=== PATIENT | female | born 1940 | race Caucasian/White ===

== ENCOUNTER → 2016-08-08 | Outpatient (REF) | payer MEDICARE | LOC: M LAB REF 16:40 | PROVIDERS: ATTEND Nurse Practitioner Adult Health | DX: Z01.89 Encounter for other specified special examinations (principal) ==

== ENCOUNTER → 2016-11-07 | Outpatient (CLI) | payer MEDICARE ==
[~2016-11-07] VITALS: Ht 160 cm; Wt 80.7 kg
[~2016-11-07] MED LIST: ATEN25TA PO; BENA40TA2 PO; CARD120T4 PO; CO Q10CA PO; COUM1TAB17 PO; COUM2.5T11 PO; HYDR12.55 PO; LEVO75TA4 PO; LIDOCAINE 2% INJ 100 MG/5 ML SDV (FOR ANES.) As Ordered ONE; NS 1,000 ML IV SCH; OMEP10CASR PO; PRAV40TA2 PO; PROPOFOL 200 MG/20 ML VIAL As Ordered ONE; VITAPOW41 XX
--- NOTE | 2016-11-07 13:21 | ROOR ---
Patient Name: Bonnie Lovelace Procedure Date: 11/07/2016 1:04 PM Date of : 1940 Age: 75 Room: [facility] Gender: Female Note Status: Finalized Procedure: Upper GI endoscopy + Biopsies Indications: Heartburn Providers: Triston Boogie MD Referring MD: GIUSEPPE PEREZ JR, MD Requesting Provider: Medicines: Monitored Anesthesia Care Complications: No immediate complications. Procedure: Pre-Anesthesia Assessment: - The heart rate, respiratory rate, oxygen saturations, blood pressure, adequacy of pulmonary ventilation, and response to care were monitored throughout the procedure. The Endoscope was introduced through the mouth, and advanced to the second part of duodenum. The upper GI endoscopy was accomplished without difficulty. The patient tolerated the procedure well. Findings: The Z-line was irregular and was found 30 cm from the incisors. Multiple biopsies were obtained with cold forceps for evaluation to rule out Larson's Esophagus randomly at the gastroesophageal junction. A large hiatal hernia was present. No other significant abnormalities were identified in a careful examination of the stomach. The exam of the duodenum was otherwise normal. Impression: - Z-line irregular, 30 cm from the incisors. - Large hiatal hernia. - Multiple biopsies were obtained at the gastroesophageal junction. - The examination was otherwise normal. Recommendation: - Patient has a contact number available for emergencies. The signs and symptoms of potential delayed complications were discussed with the patient. Return to normal activities tomorrow. Written discharge instructions were provided to the patient. - Discharge patient to home. - Follow an antireflux regimen. - Continue present medications. - Check Portal Online for Path Results.([email or web address]) - Telephone GI clinic for pathology results in 1 week. - The findings and recommendations were discussed with the patient's family. Triston Boogie MD Triston Boogie MD 11/07/2016 1:21:35 PM This report has been signed electronically. Number of Addenda: 0 Note Initiated On: 11/07/2016 1:04 PM Estimated Blood Loss: Estimated blood loss: none.
--- NOTE | 2016-11-07 13:39 | ROOR ---
Patient Name: Bonnie Lovelace Procedure Date: 11/07/2016 1:04 PM Date of : 1940 Age: 75 Room: [facility] Gender: Female Note Status: Finalized Procedure: Colonoscopy to Cecum + Biopsy Polypectomy Indications: High risk colon cancer surveillance: Personal history of colonic polyps, Last colonoscopy: 2013 Providers: Triston Boogie MD Referring MD: GIUSEPPE PEREZ JR, MD Requesting Provider: Medicines: Monitored Anesthesia Care Complications: No immediate complications. Procedure: Pre-Anesthesia Assessment: - The heart rate, respiratory rate, oxygen saturations, blood pressure, adequacy of pulmonary ventilation, and response to care were monitored throughout the procedure. The Colonoscope was introduced through the anus and advanced to the cecum, identified by appendiceal orifice and ileocecal valve. The colonoscopy was performed without difficulty. The patient tolerated the procedure well. The quality of the bowel preparation was excellent. Findings: The perianal and digital rectal examinations were normal. Non-bleeding internal hemorrhoids were found during retroflexion. The hemorrhoids were small and Grade I (internal hemorrhoids that do not prolapse). Scattered small-mouthed diverticula were found in the recto-sigmoid colon, sigmoid colon and descending colon. A small polyp was found in the hepatic flexure. The polyp was sessile. The polyp was removed with a jumbo cold forceps. Resection and retrieval were complete. The exam was otherwise without abnormality on direct and retroflexion views. Impression: - Non-bleeding internal hemorrhoids. - Diverticulosis in the recto-sigmoid colon, in the sigmoid colon and in the descending colon. - One small polyp at the hepatic flexure, removed with a jumbo cold forceps. Resected and retrieved. - The examination was otherwise normal on direct and retroflexion views. - The exam was otherwise normal to the cecum. Recommendation: - Patient has a contact number available for emergencies. The signs and symptoms of potential delayed complications were discussed with the patient. Return to normal activities tomorrow. Written discharge instructions were provided to the patient. - High fiber diet. - Discharge patient to home. - Continue present medications. - Await pathology results. - Telephone GI clinic for pathology results in 1 week. - Check Portal Online for Path Results.([email or web address]) - Repeat colonoscopy for symptoms only. - The findings and recommendations were discussed with the patient's family. Triston Boogie MD Triston Boogie MD 11/07/2016 1:39:00 PM This report has been signed electronically. Number of Addenda: 0 Note Initiated On: 11/07/2016 1:04 PM Estimated Blood Loss: Estimated blood loss: none.
[2016-11-07 14:00] VITALS: BP 131/65
== END | disposition home or self-care (01) ==
LOC: M OPP 11:27
PROVIDERS: ATTEND Internal Medicine Gastroenterology
DX: Z12.11 Encounter for screening for malignant neoplasm of colon (principal); D12.3 Benign neoplasm of transverse colon; K64.0 First degree hemorrhoids; K57.30 Diverticulosis of large intestine without perforation or abscess without bleeding; Z86.010 Personal history of colon polyps; R12 Heartburn; K22.8 Other specified diseases of esophagus; K44.9 Diaphragmatic hernia without obstruction or gangrene; I48.91 Unspecified atrial fibrillation; I10 Essential (primary) hypertension; E78.5 Hyperlipidemia, unspecified; E03.9 Hypothyroidism, unspecified; R23.3 Spontaneous ecchymoses; F32.9 Major depressive disorder, single episode, unspecified; J45.909 Unspecified asthma, uncomplicated; R06.83 Snoring; G47.30 Sleep apnea, unspecified; N63 Unspecified lump in breast; M19.90 Unspecified osteoarthritis, unspecified site; Z79.01 Long term (current) use of anticoagulants; Z79.899 Other long term (current) drug therapy; Z91.040 Latex allergy status; Z80.0 Family history of malignant neoplasm of digestive organs; Z80.3 Family history of malignant neoplasm of breast; Z87.891 Personal history of nicotine dependence

== ENCOUNTER 2017-05-15 06:25 | Day surgery (SDC) | payer MEDICARE ==
[~2017-05-15] VITALS: Ht 160 cm; Wt 80.3 kg
[~2017-05-15 06:25] MED LIST changes: +ACETAMINOPHEN 325 MG TAB PO PRN; -BENA40TA2 PO; +BENA40TA7 PO; -COUM2.5T11 PO; +COUM2.5T17 PO; -LIDOCAINE 2% INJ 100 MG/5 ML SDV (FOR ANES.) As Ordered ONE; +METO1TAB32 PO; -NS 1,000 ML IV SCH; -PROPOFOL 200 MG/20 ML VIAL As Ordered ONE; +QVAR1AER2 IN; +VENTAER IN
[2017-05-15] MEDS ORDERED: LIDOCAINE 3.5 % 1ML OPHTH TOPICAL GEL OU ONE (07:00)
[2017-05-15] MEDS ORDERED: PHENYLEPHRINE 2.5% OPHTH SOL 2ML OS ONE (07:00)
[2017-05-15] MEDS ORDERED: TROPICAMIDE 1% OPHTH SOLN 2ML OS ONE (07:00)
[2017-05-15] MEDS ORDERED: BALANCED SALT IRRIGATION SOLUTION 500ML BAG (FOR OR EYE MACHINE) XX ONE (07:00)
[2017-05-15] MEDS ORDERED: CYCLOPENTOLATE 2% OPHTH SOLN 2ML BTL OS ONE (07:00)
[2017-05-15] MEDS ORDERED: OFLOXACIN 0.3 % (OCUFLOX) OPTH SOL 5ML OS ONE (07:00)
[2017-05-15] MEDS ORDERED: PROPARACAINE 0.5% OPHTH SOL 15ML OS PRN (07:01)
[2017-05-15] MEDS ORDERED: MIDAZOLAM INJ 2 MG/2 ML VIAL (J2250) As Ordered ONE (07:04)
[2017-05-15] MEDS ORDERED: fentaNYL 100 MCG/2 ML INJECTION (J3010) As Ordered ONE (07:04)
[2017-05-15] MEDS ORDERED: ACETYLCHOLINE OPHTH SOLN 1% 2ML (MIOCHOL-E) As Ordered ONE (07:43)
[2017-05-15] MEDS ORDERED: POVIDONE-IODINE 5% OPHTH PREP SOL 30ML As Ordered ONE (07:43)
[2017-05-15] MEDS ORDERED: LIDOCAINE 1% SDV 5 ML VIAL As Ordered ONE (07:43)
[2017-05-15] MEDS ORDERED: CEFUROXIME 1MG/0.1ML INTRACAMERAL INJ As Ordered ONE (07:43)
[2017-05-15] MEDS ORDERED: HEALON DUET (HEALON 10MG/ML 0.55ML & HEALON ENDOCOAT 30MG/ML 0.85ML) As Ordered ONE (07:44)
[2017-05-15] MEDS ORDERED: BALANCED SALT IRRIGATION SOLUTION 500ML BAG (FOR OR EYE MACHINE) As Ordered ONE (07:55)
[2017-05-15] MEDS ORDERED: KETOROLAC 0.5% OPHTH SOLN OS ONE (08:45)
[2017-05-15] MEDS ORDERED: TRIMETHOBENZAMIDE 300 MG CAP PO PRN (08:45)
[2017-05-15] MEDS ORDERED: AcetaZOLAMIDE 500 MG ER CAP PO ONE (08:45)
[2017-05-15 09:47] VITALS: BP 122/62
--- NOTE | 2017-05-16 08:13 | RO ---
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 POSTPROCEDURE DIAGNOSIS: Age related nuclear cataract left eye. PROCEDURE: Phacoemulsification and posterior chamber intraocular lens implantation. The lens used was PCB00, 27.5 diopter. SURGEON: Elizabeth Fierro MD BALE COVERER: ANESTHESIA: Topical with sedation. DESCRIPTION OF PROCEDURE: The patient was prepped and draped in the usual fashion. A lid speculum was placed between the lids. The eye was fixated. A stab incision was made to the anterior chamber, and 1% non-preserved lidocaine was instilled. Then, viscoelastic was instilled. The eye was re-fixated. A 2.75 mm sapphire keratome was used to make a clear corneal temporal limbal incision. Capsulorrhexis was begun with a 30-gauge bent needle and then carried out in a circular fashion with capsulorrhexis forceps. The lens was hydrodissected, and then the phacoemulsification unit was used to make a groove in the nucleus in two meridians. The nucleus was then cracked into four quadrants. Each quadrant was removed with the phacoemulsification unit. Any remaining cortex was removed with the irrigation and aspiration (I and A) unit. Capsular bag was refilled with viscoelastic. A posterior chamber intraocular lens was placed in the capsular bag without difficulty. Any remaining viscoelastic was removed with the I and A unit. The wound was hydrated, and Miochol and cefuroxime were instilled into the anterior chamber. The patient tolerated the procedure well and went to the recovery room in stable condition.
== END 2017-05-15 09:50 | disposition home or self-care (01) ==
LOC: M SDC 06:25
PROVIDERS: ATTEND Ophthalmology
DX: H25.12 Age-related nuclear cataract, left eye (principal); I11.9 Hypertensive heart disease without heart failure; I48.0 Paroxysmal atrial fibrillation; E78.00 Pure hypercholesterolemia, unspecified; E03.9 Hypothyroidism, unspecified; K44.9 Diaphragmatic hernia without obstruction or gangrene; K21.9 Gastro-esophageal reflux disease without esophagitis; J45.40 Moderate persistent asthma, uncomplicated; R06.83 Snoring; G47.33 Obstructive sleep apnea (adult) (pediatric); J30.1 Allergic rhinitis due to pollen; E66.9 Obesity, unspecified; Z68.32 Body mass index [BMI] 32.0-32.9, adult; Z79.899 Other long term (current) drug therapy; Z79.01 Long term (current) use of anticoagulants; Z87.891 Personal history of nicotine dependence; Z96.642 Presence of left artificial hip joint
CPT/HCPCS: 66984; J2250; J3010; V2632

== ENCOUNTER → 2019-07-28 | Outpatient (REF) | payer MEDICARE ==
[~2019-07-28] MED LIST changes: -ACETAMINOPHEN 325 MG TAB PO PRN; +BENA40TA5 PO; -BENA40TA7 PO; -QVAR1AER2 IN; +QVAR80AE10 IN
[2019-07-28 19:16] LABS: CA19-9 TUMOR MARKER,CARBOHYDRA 21.1 U/ML (<35.0)
== END ==
LOC: M LAB REF 16:40
PROVIDERS: ATTEND Nurse Practitioner Adult Health
DX: D48.7 Neoplasm of uncertain behavior of other specified sites (principal)

== ENCOUNTER → 2020-03-02 | Outpatient (REF) | payer MEDICARE ==
[2020-03-02 16:58] LABS: PERCENT SATURATION 3.4 % (13.2-45.0)
== END ==
LOC: M LAB REF 11:51
PROVIDERS: ATTEND Nurse Practitioner Adult Health
DX: D64.9 Anemia, unspecified (principal); R35.0 Frequency of micturition

== ENCOUNTER 2020-05-06 09:12 | Outpatient (CLI) | payer MEDICARE ==
[~2020-05-06] VITALS: Ht 157.5 cm; Wt 82.1 kg
[2020-05-06] MEDS ORDERED: IRON SUCROSE 475 MG in NS 250 ML IV ONE (09:30)
[2020-05-06] MEDS ORDERED: IRON SUCROSE 25 MG in NS 25 ML IV ONE (09:30)
[2020-05-06 10:50] VITALS: BP 129/60
[2020-05-06 12:05] VITALS: BP 122/66
[2020-05-06 13:00] VITALS: BP 119/51
[2020-05-06 13:55] VITALS: BP 112/66
[2020-05-06 14:23] VITALS: BP 106/53
== END 2020-05-06 14:35 | disposition home or self-care (01) ==
LOC: M INFU 09:12
PROVIDERS: ATTEND Nurse Practitioner Adult Health
DX: D50.9 Iron deficiency anemia, unspecified (principal); Z79.899 Other long term (current) drug therapy
CPT/HCPCS: 96365; 96366; J1756

== ENCOUNTER 2023-01-25 13:27 | Observation (INO) | payer MEDICARE ==
[~2023-01-25] VITALS: Ht 160 cm; Wt 63.6 kg
[~2023-01-25 13:27] MED LIST changes: -BENA40TA5 PO; +BENA40TA84 PO
[2023-01-25 14:41] LABS: BASO # 0.1 10^3/uL (0.0-0.2); BASO % 0.8 % (0.0-1.0); EOS # 0.1 10^3/uL (0.0-0.5); EOS % 1.4 % (0.0-3.0); HEMATOCRIT 49.1 % (36.0-47.0); HEMOGLOBIN 16.1 g/dl (12.0-15.5); LYMPH # 1.2 10^3/uL (1.5-5.0); LYMPH % 16.4 % (24.0-44.0); MEAN CORPUSCULAR HEMOGLOBIN 29.7 pg (27.0-33.0); MEAN CORPUSCULAR HGB CONC 32.8 g/dl (32.0-36.5); MEAN CORPUSCULAR VOLUME 90.6 fl (80.0-96.0); MONO # 0.5 10^3/uL (0.0-0.8); NEUTROPHILS # 5.5 10^3/uL (1.5-8.5); NEUTROPHILS % 74.3 % (36.0-66.0); RED BLOOD COUNT 5.42 10^6/uL (4.00-5.40); WHITE BLOOD COUNT 7.4 10^3/uL (4.0-10.0)
[2023-01-25 15:16] LABS: CK-MB VALUE MASS 1.3 NG/ML (<3.6)
[2023-01-25 15:17] LABS: BLOOD UREA NITROGEN 18 MG/DL (9-23); CALCIUM LEVEL 9.3 MG/DL (8.3-10.6); CARBON DIOXIDE LEVEL 21 MMOL/L (20-31); CHLORIDE LEVEL 109 MMOL/L (98-107); CREATININE FOR GFR 0.69 MG/DL (0.55-1.30); GLOMERULAR FILTRATION RATE > 60.0 (>32); GLUCOSE, FASTING 198 MG/DL (74-106); PLATELET COUNT, AUTOMATED 151 10^3/uL (150-450); POTASSIUM SERUM 4.8 MMOL/L (3.5-5.1); SODIUM LEVEL 140 MMOL/L (136-145)
[2023-01-25 15:19] LABS: INR 1.03; PROTHROMBIN TIME 13.7 SECONDS (12.5-14.5); THYROID STIMULATING HORMONE 3.393 uIU/ML (0.55-4.78)
[2023-01-25 15:20] LABS: PARTIAL THROMBOPLASTIN TIME 27.8 SECONDS (24.8-34.2)
[2023-01-25 15:23] LABS: CPK CREATINE PHOSPHOKINASE 54 U/L (34-145)
[2023-01-25] MEDS ORDERED: BENAZEPRIL 20 MG TAB PO SCH (21:00)
[2023-01-25 22:04] LABS: RSV AMPLIFICATION NEGATIVE (NEGATIVE)
[2023-01-25 22:08] VITALS: O2SAT 98
[2023-01-25] MEDS ORDERED: ATEN25TA PO (22:40)
[2023-01-25] MEDS ORDERED: APIXABAN 5 MG TAB (ELIQUIS) PO ONE (22:40)
[2023-01-25] MEDS ORDERED: ELIQ5TAB PO ×2 (22:40→23:53)
[2023-01-25] MEDS ORDERED: atenoloL 25 MG TAB PO ONE (22:40)
[2023-01-25] MEDS ORDERED: ACETAMINOPHEN 500 MG TAB PO ONE (23:50)
[2023-01-25] MEDS ORDERED: HYDR-3490 PO (23:53)
[2023-01-25] MEDS ORDERED: BENA40TA84 PO (23:53)
[2023-01-25] MEDS ORDERED: ALBU8.5H INH (23:53)
[2023-01-25] MEDS ORDERED: BUSP15TA47 PO (23:53)
[2023-01-25] MEDS ORDERED: DILT120C31 PO (23:53)
[2023-01-25] MEDS ORDERED: PRAV40TA2 PO (23:53)
[2023-01-25] MEDS ORDERED: CITA20TA7 PO (23:53)
[2023-01-25] MEDS ORDERED: LEVO88TA3 PO (23:53)
[2023-01-25] MEDS ORDERED: OMEP-173 PO (23:53)
[2023-01-25] MEDS ORDERED: HOME MED LIST COMPLETE! XX SCH (23:55)
[2023-01-26 02:26] LABS: HEMOGLOBIN A1c 5.3 % (4.0-6.0)
[2023-01-26] MEDS ORDERED: amLODIPine 5 MG TAB PO ONE (03:00)
[2023-01-26] MEDS ORDERED: ACETAMINOPHEN TAB 650MG DOSE (2X325MG) PO PRN (04:00)
[2023-01-26] MEDS: LEVOTHYROXINE 88MCG TABLET (0.088 MG) PO SCH (05:55)
[2023-01-26] MEDS ORDERED: ALBUTEROL 90 MCG/ACT 8GM HFA INHALER INH PRN (06:20)
[2023-01-26 06:46] LABS: ALBUMIN 3.3 G/DL (3.2-5.2); ALKALINE PHOSPHATASE 80 U/L (46-116); ALT/SGPT 14 U/L (7.0-40); AST/SGOT 14 U/L (<34); BILIRUBIN,TOTAL 0.8 MG/DL (0.3-1.2); BLOOD UREA NITROGEN 14 MG/DL (9-23); CALCIUM LEVEL 9.2 MG/DL (8.3-10.6); CARBON DIOXIDE LEVEL 24 MMOL/L (20-31); CHLORIDE LEVEL 108 MMOL/L (98-107); CREATININE FOR GFR 0.72 MG/DL (0.55-1.30); GLOMERULAR FILTRATION RATE > 60.0 (>32); GLUCOSE, FASTING 85 MG/DL (74-106); MAGNESIUM LEVEL 2.2 MG/DL (1.8-2.4); POTASSIUM SERUM 4.6 MMOL/L (3.5-5.1); SODIUM LEVEL 140 MMOL/L (136-145); TOTAL PROTEIN 5.4 G/DL (5.7-8.2)
[2023-01-26] MEDS: busPIRone 5 MG TAB PO SCH ×2 (08:40→21:17)
[2023-01-26] MEDS: OMEPRAZOLE 20MG CAP PO SCH (08:40)
[2023-01-26] MEDS: APIXABAN 5 MG TAB (ELIQUIS) PO SCH ×2 (08:41→21:16)
[2023-01-26] MEDS: PRAVASTATIN 20 MG TAB PO SCH (08:41)
[2023-01-26] MEDS: CitaloPRAM (CeleXA) 20 MG TAB PO SCH (08:41)
[2023-01-26] MEDS: dilTIAZem 120MG **CD** CAPSULE PO SCH (08:42)
[2023-01-26] MEDS: BENAZEPRIL 20 MG TAB PO SCH (11:12)
[2023-01-26 17:45] VITALS: BP 105/54; TEMP 97.5; O2SAT 98
[2023-01-26] MEDS ORDERED: CALCIUM CARBONATE 500 MG CHEW U/D PO PRN (20:05)
[2023-01-26 21:59] VITALS: BP 97/55; TEMP 97.7; O2SAT 97
[2023-01-26 22:59] VITALS: BP 136/76
[2023-01-27] MEDS: LEVOTHYROXINE 88MCG TABLET (0.088 MG) PO SCH (05:57)
[2023-01-27 06:00] VITALS: BP 131/75; TEMP 97.7; O2SAT 95
[2023-01-27 07:10] LABS: HEMATOCRIT 44.4 % (36.0-47.0); HEMOGLOBIN 14.7 g/dl (12.0-15.5); MEAN CORPUSCULAR HEMOGLOBIN 29.9 pg (27.0-33.0); MEAN CORPUSCULAR HGB CONC 33.1 g/dl (32.0-36.5); MEAN CORPUSCULAR VOLUME 90.2 fl (80.0-96.0); PLATELET COUNT, AUTOMATED 280 10^3/uL (150-450); RED BLOOD COUNT 4.92 10^6/uL (4.00-5.40); WHITE BLOOD COUNT 7.4 10^3/uL (4.0-10.0)
[2023-01-27 07:26] LABS: BLOOD UREA NITROGEN 18 MG/DL (9-23); CALCIUM LEVEL 10.2 MG/DL (8.3-10.6); CARBON DIOXIDE LEVEL 22 MMOL/L (20-31); CHLORIDE LEVEL 105 MMOL/L (98-107); CREATININE FOR GFR 0.91 MG/DL (0.55-1.30); GLOMERULAR FILTRATION RATE > 60.0 (>32); GLUCOSE, FASTING 123 MG/DL (74-106); MAGNESIUM LEVEL 2.1 MG/DL (1.8-2.4); SODIUM LEVEL 139 MMOL/L (136-145)
[2023-01-27] MEDS: APIXABAN 5 MG TAB (ELIQUIS) PO SCH (10:03)
[2023-01-27] MEDS: CitaloPRAM (CeleXA) 20 MG TAB PO SCH (10:03)
[2023-01-27] MEDS: PRAVASTATIN 20 MG TAB PO SCH (10:03)
[2023-01-27] MEDS: OMEPRAZOLE 20MG CAP PO SCH (10:03)
[2023-01-27] MEDS: busPIRone 5 MG TAB PO SCH (10:03)
[2023-01-27 10:04] VITALS: BP 128/62
[2023-01-27] MEDS: dilTIAZem 120MG **CD** CAPSULE PO SCH (10:04)
[2023-01-27] MEDS: BENAZEPRIL 20 MG TAB PO SCH (10:04)
[2023-01-27] MEDS ORDERED: BUSP15TA47 PO (10:24)
[2023-01-27] MEDS ORDERED: DILT120C31 PO (10:24)
[2023-01-27] MEDS ORDERED: OMEP-173 PO (10:24)
[2023-01-27] MEDS ORDERED: HYDR-3490 PO (10:24)
[2023-01-27] MEDS ORDERED: LEVO88TA3 PO (10:24)
[2023-01-27] MEDS ORDERED: ALBU8.5H INH (10:24)
[2023-01-27] MEDS ORDERED: ELIQ5TAB PO (10:24)
[2023-01-27] MEDS ORDERED: PRAV40TA2 PO (10:24)
[2023-01-27] MEDS ORDERED: BENA40TA84 PO (10:24)
[2023-01-27] MEDS ORDERED: CITA20TA7 PO (10:24)
== END 2023-01-27 14:07 | disposition home or self-care (01) ==
LOC: M ED 13:27 → EDBD 13:27 → M ED INP 13:28 → M MSPAV 01-26 17:42
PROVIDERS: ADMIT Internal Medicine; ATTEND Family Medicine
DX: I16.0 Hypertensive urgency (principal); R00.2 Palpitations; I48.91 Unspecified atrial fibrillation; I67.82 Cerebral ischemia; E03.9 Hypothyroidism, unspecified; I10 Essential (primary) hypertension; J45.909 Unspecified asthma, uncomplicated; F41.9 Anxiety disorder, unspecified; E78.00 Pure hypercholesterolemia, unspecified; R73.9 Hyperglycemia, unspecified; K21.9 Gastro-esophageal reflux disease without esophagitis; Z76.0 Encounter for issue of repeat prescription; Z91.148 Patient's other noncompliance with medication regimen for other reason; Z79.899 Other long term (current) drug therapy; Z79.01 Long term (current) use of anticoagulants; Z79.890 Hormone replacement therapy; R42 Dizziness and giddiness
CPT/HCPCS: 36415; 70450; 70544; 70551; 71045; 80048; 80053; 82550; 82553; 83036; 83735; 84443; 84484; 85025; 85027; 85610; 85730; 87631; 93005; 93041; 97161; 97530; 99285; G0378

== ENCOUNTER 2024-01-02 02:04 | Observation (INO) | payer MEDICARE ==
[~2024-01-02] VITALS: Ht 157.5 cm; Wt 68.4 kg
[~2024-01-02 02:04] MED LIST changes: +ALBU8.5H INH; +BUSP15TA47 PO; +CITA20TA7 PO; +DILT120C31 PO; +ELIQ5TAB PO; +HYDR-3490 PO; +LEVO88TA3 PO; +OMEP-173 PO
[2024-01-02] MEDS: ONDANSETRON 4MG ORAL DISINTEGRATING TAB PO ONE (03:48)
[2024-01-02 04:03] LABS: BASO % 0.5 % (0.0-1.0); HEMATOCRIT 47.1 % (36.0-47.0); HEMOGLOBIN 15.9 g/dl (12.0-15.5); LYMPH # 0.5 10^3/uL (1.5-5.0); LYMPH % 6.9 % (24.0-44.0); MEAN CORPUSCULAR HEMOGLOBIN 30.7 pg (27.0-33.0); MEAN CORPUSCULAR HGB CONC 33.8 g/dl (32.0-36.5); MEAN CORPUSCULAR VOLUME 90.9 fl (80.0-96.0); MONO # 0.6 10^3/uL (0.0-0.8); MONO % 8.5 % (2.0-8.0); NEUTROPHILS # 5.5 10^3/uL (1.5-8.5); NEUTROPHILS % 83.9 % (36.0-66.0); PLATELET COUNT, AUTOMATED 190 10^3/uL (150-450); RED BLOOD COUNT 5.18 10^6/uL (4.00-5.40); WHITE BLOOD COUNT 6.5 10^3/uL (4.0-10.0)
[2024-01-02 04:27] LABS: BLOOD UREA NITROGEN 15 MG/DL (9-23); CALCIUM LEVEL 9.2 MG/DL (8.3-10.6); CARBON DIOXIDE LEVEL 25 MMOL/L (20-31); CHLORIDE LEVEL 103 MMOL/L (98-107); CREATININE FOR GFR 0.75 MG/DL (0.55-1.30); GLOMERULAR FILTRATION RATE > 60.0 (>32); GLUCOSE, FASTING 121 MG/DL (74-106); POTASSIUM SERUM 3.9 MMOL/L (3.5-5.1); SODIUM LEVEL 137 MMOL/L (136-145)
[2024-01-02] MEDS: NS 1,000 ML IV ONE (05:28)
[2024-01-02] MEDS: METOCLOPRAMIDE INJ 10MG/2ML VIAL IV ONE (05:28)
[2024-01-02] MEDS: ACETAMINOPHEN *IV* 1,000 MG in IV 1 EA IV ONE (05:28)
[2024-01-02 06:08] LABS: CK-MB VALUE MASS < 1.0 NG/ML (<3.6)
[2024-01-02 06:10] LABS: CPK CREATINE PHOSPHOKINASE 73 U/L (34-145); MB/CK RELATIVE INDEX 1.36 (< OR =4)
[2024-01-02 06:36] VITALS: O2SAT 94
[2024-01-02] MEDS ORDERED: NIRM1TAB14 PO (06:41)
[2024-01-02] MEDS: REMDESIVIR 200 MG in NS 250 ML IV ONE (09:52)
[2024-01-02] MEDS: dexAMETHasone 20MG/5ML VIAL IV ONE (09:54)
[2024-01-02] MEDS ORDERED: SYNT88TA2 PO (09:56)
[2024-01-02] MEDS ORDERED: CITA20TA6 PO (09:56)
[2024-01-02] MEDS ORDERED: DILT120C77 PO (09:56)
[2024-01-02] MEDS ORDERED: HOME MED LIST COMPLETE! XX SCH (10:00)
[2024-01-02 10:46] LABS: PROCALCITONIN 0.07 ng/ml
[2024-01-02] MEDS: dilTIAZem 120MG **CD** CAPSULE PO SCH (11:50)
[2024-01-02] MEDS: CitaloPRAM (CeleXA) 20 MG TAB PO SCH (11:53)
[2024-01-02] MEDS: PRAVASTATIN 20 MG TAB PO SCH (11:54)
[2024-01-02] MEDS ORDERED: ALBUTEROL 90 MCG/ACT 8GM HFA INHALER INH PRN (12:05)
[2024-01-02] MEDS: LEVOTHYROXINE 88MCG TABLET (0.088 MG) PO SCH (13:03)
[2024-01-02 14:59] VITALS: BP 155/73; TEMP 97.7; O2SAT 100
[2024-01-02] MEDS: APIXABAN 5 MG TAB (ELIQUIS) PO SCH (15:19)
[2024-01-02] MEDS: PANTOPRAZOLE 40MG TAB (PROTONIX) PO SCH (15:19)
[2024-01-02 20:22] VITALS: BP 141/72; TEMP 98.1; O2SAT 97
[2024-01-02] MEDS: BENAZEPRIL 20 MG TAB PO SCH (20:24)
[2024-01-03 04:27] VITALS: BP 178/74; TEMP 98.2; O2SAT 97
[2024-01-03 08:13] VITALS: O2SAT 97
[2024-01-03] MEDS: ACETAMINOPHEN TAB 650MG DOSE (2X325MG) PO PRN (08:13)
[2024-01-03 08:18] VITALS: BP 179/87
[2024-01-03] MEDS: ONDANSETRON 4MG 2ML VIAL IV ONE (10:07)
[2024-01-03] MEDS: REMDESIVIR 100 MG in NS 250 ML IV SCH (10:07)
[2024-01-03 10:14] VITALS: O2SAT 97
[2024-01-03 12:00] VITALS: BP 149/70; TEMP 98.4; O2SAT 96
[2024-01-03] MEDS ORDERED: ACET1TAB55 PO (12:29)
[2024-01-03] MEDS ORDERED: DILT120C78 PO (12:29)
[2024-01-03] MEDS ORDERED: XANA0.5T3 PO (15:47)
== END 2024-01-03 16:25 | disposition home or self-care (01) ==
LOC: M ED 02:04 → M ED INP 02:05 → M MSPAV 14:58
PROVIDERS: ADMIT Internal Medicine; ATTEND Internal Medicine
DX: U07.1 COVID-19 (principal); I48.0 Paroxysmal atrial fibrillation; I10 Essential (primary) hypertension; E78.5 Hyperlipidemia, unspecified; J45.909 Unspecified asthma, uncomplicated; K21.9 Gastro-esophageal reflux disease without esophagitis; E03.9 Hypothyroidism, unspecified; F41.9 Anxiety disorder, unspecified; R00.1 Bradycardia, unspecified; R63.0 Anorexia; J98.11 Atelectasis; J30.1 Allergic rhinitis due to pollen; Z91.199 Patient's noncompliance with other medical treatment and regimen due to unspecified reason; Z79.899 Other long term (current) drug therapy; Z79.01 Long term (current) use of anticoagulants; Z79.890 Hormone replacement therapy; Z96.641 Presence of right artificial hip joint; Z90.89 Acquired absence of other organs; Z98.51 Tubal ligation status; Z20.9 Contact with and (suspected) exposure to unspecified communicable disease
CPT/HCPCS: 71045; 80048; 82550; 82553; 83880; 84145; 84484; 85025; 86140; 87486; 87581; 87633; 87798; 93005; 96365; 96366; 96367; 96375; 96376; 99285; G0378; J0131; J0248; J1100; J2405; J2765

== ENCOUNTER 2024-07-16 22:29 | Emergency (ER) | payer MEDICARE ==
[~2024-07-16 22:29] MED LIST changes: +ACET1TAB55 PO; +CITA20TA6 PO; +DILT120C77 PO; +DILT120C78 PO; +NIRM1TAB14 PO; +SYNT88TA2 PO; +XANA0.5T3 PO
[2024-07-16 23:32] LABS: HEMATOCRIT 58.1 % (36.0-47.0); MEAN CORPUSCULAR HEMOGLOBIN 30.9 pg (27.0-33.0); MEAN CORPUSCULAR HGB CONC 35.5 g/dl (32.0-36.5); MEAN CORPUSCULAR VOLUME 87.2 fl (80.0-96.0); PLATELET COUNT, AUTOMATED 227 10^3/uL (150-450); RED BLOOD COUNT 6.66 10^6/uL (4.00-5.40)
[2024-07-16 23:34] LABS: HEMOGLOBIN 20.6 g/dl (12.0-15.5); WHITE BLOOD COUNT 30.4 10^3/uL (4.0-10.0)
[2024-07-16 23:47] LABS: ETHYL ALCOHOL (ETHANOL) 0.005 % (0.000-0.010)
[2024-07-16 23:49] LABS: ALBUMIN 2.9 G/DL (3.2-5.2); ALKALINE PHOSPHATASE 119 U/L (35-104); ALT/SGPT 40 U/L (7.0-40); AST/SGOT 53 U/L (<34); BILIRUBIN,DIRECT 0.4 MG/DL (<0.4); BILIRUBIN,TOTAL 0.7 MG/DL (0.3-1.2); BLOOD UREA NITROGEN 141 MG/DL (9-23); CALCIUM LEVEL 9.6 MG/DL (8.3-10.6); CARBON DIOXIDE LEVEL 15 MMOL/L (20-31); CHLORIDE LEVEL 101 MMOL/L (98-107); GLOMERULAR FILTRATION RATE 22.7 (>32); GLUCOSE, FASTING 108 MG/DL (74-106); POTASSIUM SERUM 4.6 MMOL/L (3.5-5.1); SALICYLATE LEVEL < 3.0 MG/DL (<30); SODIUM LEVEL 140 MMOL/L (136-145); TOTAL PROTEIN 6.5 G/DL (5.7-8.2)
[2024-07-16 23:51] LABS: THYROID STIMULATING HORMONE 5.231 uIU/ML (0.55-4.78)
[2024-07-16 23:56] LABS: CPK CREATINE PHOSPHOKINASE 462 U/L (34-145)
[2024-07-17] MEDS: NS (Normal Saline) 0.9% 2,000 ML in IV 1 EA IV ONE (00:05)
[2024-07-17 00:22] LABS: AMPHETAMINES LEVEL URINE NEGATIVE (NEGATIVE); BARBITURATES URINE NEGATIVE (NEGATIVE); BENZODIAZEPINES URINE NEGATIVE (NEGATIVE); COCAINE METABOLITE URINE NEGATIVE (NEGATIVE); METHADONE URINE NEGATIVE (NEGATIVE); OPIATES URINE NEGATIVE (NEGATIVE); PHENCYCLIDINE URINE NEGATIVE (NEGATIVE)
[2024-07-17 00:22] LABS: LYMPHOCYTES 1 % (16-44); MONOCYTES 1 % (0-5); NEUTROPHILS 97 % (28-66)
[2024-07-17 00:23] LABS: CANNABINOIDS URINE NEGATIVE (NEGATIVE)
[2024-07-17 00:24] LABS: ANISOCYTOSIS 1+; PLATELET ESTIMATE NORMAL (NORMAL)
[2024-07-17] MEDS: PIPERACILLIN/TAZOBACTAM SOD 4.5 GM in DEXTROSE 5% (D5W) ADV/MINI-BAG 50 ML IV ONE (00:44)
[2024-07-17 01:13] VITALS: BP 120/58; O2SAT 99
[2024-07-17 01:15] LABS: KETONE, URINE AUTO RFX NEGATIVE (NEGATIVE); MUCUS, URINE RFX SMALL (NEGATIVE); NITRITE, URINE AUTO RFX NEGATIVE (NEGATIVE); RBC, URINE AUTO RFX 3 /HPF (0-3); SQUAM EPITHELIAL CELL UR AURFX 5 /HPF (0-6)
[2024-07-17 01:16] VITALS: TEMP 90.9
[2024-07-17 01:16] LABS: LEUKOCYTE ESTERASE UR AUTO RFX 2+ (NEGATIVE); WBC, URINE AUTO RFX 45 /HPF (0-3)
== END 2024-07-17 01:12 | disposition short-term general hospital (02) ==
LOC: M ED 22:29 → EDBD 22:29 → M ED 07-17 01:12
DX: S06.5X9A Traumatic subdural hemorrhage with loss of consciousness of unspecified duration, initial encounter (principal); T68.XXXA Hypothermia, initial encounter; Y92.019 Unspecified place in single-family (private) house as the place of occurrence of the external cause; Y93.9 Activity, unspecified; Y99.9 Unspecified external cause status; R41.82 Altered mental status, unspecified; N17.9 Acute kidney failure, unspecified; I45.81 Long QT syndrome; I48.91 Unspecified atrial fibrillation; J45.909 Unspecified asthma, uncomplicated; I10 Essential (primary) hypertension; E78.5 Hyperlipidemia, unspecified; G47.33 Obstructive sleep apnea (adult) (pediatric); K21.9 Gastro-esophageal reflux disease without esophagitis; F32.A Depression, unspecified; Z79.1 Long term (current) use of non-steroidal anti-inflammatories (NSAID); Z79.01 Long term (current) use of anticoagulants; Z79.899 Other long term (current) drug therapy
CPT/HCPCS: 70450; 71045; 72125; 73521; 80048; 80076; 80143; 80307; 81001; 82077; 82140; 82550; 83605; 84443; 85025; 87040; 87077; 87088; 87154; 87186; 87486; 87581; 87633; 87798; 93005; 93041; 94760; 96374; 96375; 99291; 99292; G0390; J2543